=== PATIENT | male | born 1995 | race Asian ===

== ENCOUNTER 2019-03-15 08:34 | Emergency (ER) | payer SELFPAY ==
[~2019-03-15] VITALS: Ht 172.7 cm; Wt 76.0 kg
[2019-03-15 10:05] LABS: CLARITY URINE CLEAR (CLEAR); COLOR URINE YELLOW (YELLOW); KETONES URINE TRACE (NEGATIVE); LEUKOCYTE ESTERASE URINE NEGATIVE (NEGATIVE); NITRITE URINE NEGATIVE (NEGATIVE); OCCULT BLOOD URINE NEGATIVE (NEGATIVE); PROTEIN URINE TRACE (NEGATIVE); SPECIFIC GRAVITY URINE 1.026 (1.005-1.030)
[2019-03-15 10:11] LABS: BASOPHILS % 0.4 % (0.0-2.0); EOSINOPHILS % 0.1 % (0.0-5.0); HEMATOCRIT. 53.6 % (42.0-52.0); LYMPHOCYTES % 8.9 % (20.0-50.0); MEAN CORPUSCULAR HEMOGLOBIN 30.2 pg (28.0-32.0); MEAN CORPUSCULAR VOLUME 89.8 fL (80.0-94.0); MEAN PLATELET VOLUME 8.4 fl (7.4-10.4); MONOCYTES % 5.8 % (2.0-8.0); NEUTROPHILS % 84.8 % (40.0-76.0); PLATELET 270 x1000/uL (130-400); RED BLOOD CELL COUNT 5.97 mill/uL (4.7-6.1); RED CELL DISTRIBUTION WIDTH 13.4 % (11.6-14.6)
[2019-03-15 10:17] LABS: CHLORIDE 108 mEq/L (98-107)
[2019-03-15 10:21] LABS: ETHANOL BLOOD < 10 mg/dL
[2019-03-15 11:01] LABS: CANNABINOID URINE SCREEN PRESUMTIVE POSITIVE (NEGATIVE); PHENCYCLIDINE URINE SCREEN NEGATIVE (NEGATIVE)
[2019-03-15 11:02] LABS: *BARBITURATES SCREEN URINE NEGATIVE (NEGATIVE)
[2019-03-15 11:03] LABS: *COCAINE SCREEN URINE NEGATIVE (NEGATIVE)
[2019-03-15 11:04] LABS: *BENZODIAZEPINES SCREEN URINE NEGATIVE (NEGATIVE)
[2019-03-15 11:06] LABS: *AMPHETAMINES SCREEN URINE NEGATIVE (NEGATIVE); METHADONE URINE SCREEN NEGATIVE (NEGATIVE)
[2019-03-15 11:07] LABS: OPIATES URINE SCREEN NEGATIVE (NEGATIVE)
[2019-03-15] MEDS ORDERED: OLANZAPINE 10 MG/VIAL IM STA (13:38)
[2019-03-15] MEDS ORDERED: HALOPERIDOL LACTATE 5MG/ML VIAL IM STA (13:38)
[2019-03-16] MEDS ORDERED: LORAZEPAM 2MG/ML CPJ IM ONE (04:30)
[2019-03-16] MEDS ORDERED: LORAZEPAM 2MG/ML CPJ IM PRN (11:15)
[2019-03-17] MEDS ORDERED: LORAZEPAM 2MG/ML CPJ IM ONE (12:15)
[2019-03-18] MEDS ORDERED: LORAZEPAM 1MG TABLET PO ONE (03:00)
[2019-03-18 06:03] VITALS: BP 129/70
== END 2019-03-18 06:16 | disposition home or self-care (01) ==
LOC: ER 08:34
DX: F23 Brief psychotic disorder (principal); F12.10 Cannabis abuse, uncomplicated; F17.210 Nicotine dependence, cigarettes, uncomplicated; R45.851 Suicidal ideations; Z75.1 Person awaiting admission to adequate facility elsewhere
CPT/HCPCS: 36415; 80053; 80305; 80320; 81003; 85025; 96372; 99285; J1630; J2060; J3490; G0480